=== PATIENT | female | born 1935 | race Caucasian/White ===

== ENCOUNTER 2017-10-10 14:51 | Inpatient (IN) | payer MEDICARE ==
[~2017-10-10] VITALS: Ht 165.1 cm; Wt 59.9 kg
[2017-10-10 16:01] VITALS: BP 99/43
[2017-10-10] MEDS ORDERED: PRED5TAB PO (16:09)
[2017-10-10] MEDS ORDERED: HYDR25TA PO (16:09)
[2017-10-10] MEDS ORDERED: PANT40TA25 PO (16:09)
[2017-10-10] MEDS ORDERED: WARF-67 PO (16:09)
[2017-10-10] MEDS ORDERED: AMLO5TAB2 PO (16:09)
[2017-10-10] MEDS ORDERED: FLUT16H NASAL (16:09)
[2017-10-10] MEDS ORDERED: FLUT1AER IH (16:09)
[2017-10-10] MEDS ORDERED: ALPR0.25 PO (16:09)
[2017-10-10] MEDS ORDERED: GABA-531 PO (16:09)
[2017-10-10] MEDS ORDERED: METH25VI11 IM (16:09)
[2017-10-10] MEDS ORDERED: LOSA50TA37 PO (16:09)
[2017-10-10] MEDS ORDERED: CILO50TA PO (16:09)
[2017-10-10] MEDS ORDERED: HYDR200T4 PO (16:09)
[2017-10-10] MEDS ORDERED: WARF3TAB59 PO (16:09)
[2017-10-10] MEDS ORDERED: BACL10TA PO (16:09)
[2017-10-10] MEDS ORDERED: FURO20TA4 PO (16:09)
[2017-10-10] MEDS ORDERED: FOLI1TAB15 PO (16:09)
[2017-10-10] MEDS ORDERED: NITROGLYCERIN 0.4 MG SL TAB SL PRN (16:45)
[2017-10-10 17:13] LABS: MEAN CORPUSCULAR HEMOGLOBIN 32.7 pg (27.0-33.0); MEAN CORPUSCULAR HGB CONC 34.8 g/dL (32.0-36.0); MEAN CORPUSCULAR VOLUME 94.1 fL (79-99); PLATELET COUNT (AUTO) 245 K/uL (130-400); RED BLOOD CELL COUNT(AUTO) 3.29 MIL/uL (4.00-5.50); RED CELL DISTRIBUTION WIDTH 17.4 % (11.0-15.5)
[2017-10-10 17:25] LABS: CREATININE 1.4 mg/dL (0.5-1.5); POTASSIUM 3.4 mmol/L (3.5-5.1)
[2017-10-10 17:26] LABS: INR 1.44 (0.85-1.15)
[2017-10-10 17:30] LABS: BILIRUBIN,TOTAL 0.3 mg/dL (0.2-1.0); TOTAL PROTEIN, SERUM 6.5 g/dL (6.0-8.3)
[2017-10-10 19:29] VITALS: BP 107/46
[2017-10-10 23:35] VITALS: BP 108/48
[2017-10-11] VITALS (13 sets, daily range): BP systolic 102–127; BP diastolic 36–63
[2017-10-11] MEDS: ACETAMINOPHEN 325 MG TAB PO PRN ×2 (00:31→10:01)
[2017-10-11] MEDS ORDERED: LACTULOSE 20 GM/30 ML UDCUP PO PRN (01:15)
[2017-10-11] MEDS ORDERED: POTASSIUM CHLORIDE 20MEQ/100ML 100 ML IV PRN (01:15)
[2017-10-11] MEDS ORDERED: LIDOCAINE HCL-MPF 1% 2ML VIAL IVP PRN (01:15)
[2017-10-11] MEDS ORDERED: HYDRALAZINE HCL 20 MG/ML VIAL IV PRN (01:15)
[2017-10-11] MEDS ORDERED: POTASSIUM CHLORIDE 10% ELIXIR 20 MEQ/15 ML UDCUP PO PRN (01:15)
[2017-10-11] MEDS ORDERED: POTASSIUM CHLORIDE 20 MEQ ERTAB PO PRN (01:15)
[2017-10-11] MEDS ORDERED: SODIUM CHLORIDE 0.9% 1000ML 1,000 ML IV ONE (02:31)
[2017-10-11 03:20] LABS: HEMATOCRIT 29.6 % (36-48); MEAN CORPUSCULAR HEMOGLOBIN 31.7 pg (27.0-33.0); MEAN CORPUSCULAR HGB CONC 33.7 g/dL (32.0-36.0); MEAN CORPUSCULAR VOLUME 94.1 fL (79-99); PLATELET COUNT (AUTO) 207 K/uL (130-400); RED BLOOD CELL COUNT(AUTO) 3.15 MIL/uL (4.00-5.50); RED CELL DISTRIBUTION WIDTH 17.1 % (11.0-15.5); WHITE BLOOD COUNT (AUTO) 6.2 K/uL (4.8-10.8)
[2017-10-11 03:26] LABS: INR 1.57 (0.85-1.15); PROTHROMBIN TIME 16.3 SEC (9.6-11.6)
[2017-10-11 03:27] LABS: CREATININE 1.1 mg/dL (0.5-1.5)
[2017-10-11] MEDS: SODIUM CHLORIDE 0.9% 1000ML 1,000 ML IV SCH ×3 (08:24→23:45)
[2017-10-11] MEDS ORDERED: FLUTICASONE/VILANTEROL 1 EACH AER.POW.BA IH SCH (09:00)
[2017-10-11] MEDS: FLUTICASONE PROPIONATE 50MCG/SPRAY 16 GM BOTTLE EN SCH (09:00)
[2017-10-11] MEDS: BACLOFEN 10 MG TABLET PO SCH ×2 (09:00→21:00)
[2017-10-11] MEDS: HYDROXYCHLOROQUINE SULFATE 200 MG TAB PO SCH ×2 (09:00→21:00)
[2017-10-11] MEDS: GABAPENTIN 300 MG CAPSULE PO SCH ×2 (09:00→21:00)
[2017-10-11] MEDS ORDERED: PANTOPRAZOLE 40 MG/VIAL IVP SCH (09:00)
[2017-10-11] MEDS: LOSARTAN 50 MG TABLET PO SCH ×2 (10:00→21:00)
[2017-10-11] MEDS: PANTOPRAZOLE SODIUM 40 MG TABLET.DR PO SCH (10:00)
[2017-10-11] MEDS: AMLODIPINE BESYLATE 5 MG TAB PO SCH ×2 (10:00→21:00)
[2017-10-11] MEDS ORDERED: SODIUM BICARB 50MEQ 50ML VIAL ONE (14:50)
[2017-10-11] MEDS ORDERED: LIDOCAINE HCL 2% 20ML ONE (14:50)
[2017-10-11] MEDS ORDERED: ISOVUE-300 100 ML VIAL IV ONE (14:50)
[2017-10-11] MEDS ORDERED: HEPARIN SODIUM 1000UNIT/ML 10ML VIAL ONE (14:50)
[2017-10-11] MEDS ORDERED: NITROGLYCERIN 5 MG/ML 10 ML VIAL IV ONE (14:50)
[2017-10-11] MEDS ORDERED: FENTANYL CITRATE PF 50 MCG/1 ML 5ML AMP IV ONE (17:54)
[2017-10-11] MEDS ORDERED: PROPOFOL 10 MG/ML 20ML VIAL IV ONE ×2 (17:56→20:50)
[2017-10-11] MEDS ORDERED: BACITRACIN 50,000 UNIT VIAL ONE (18:25)
[2017-10-11] MEDS ORDERED: OCTYL 2-CYANOACRYLATE 1 EACH TP ONE (18:25)
[2017-10-11] MEDS ORDERED: CLINDAMYCIN 900 MG/D5% WATER 50 ML IV ONE (18:32)
[2017-10-11] MEDS ORDERED: CLINDAMYCIN 900 MG/D5% WATER 50 ML IV SCH (18:45)
[2017-10-11] MEDS: CLINDAMYCIN 600 MG/D5% WATER 50 ML IV SCH (19:00)
[2017-10-11] MEDS ORDERED: ACETAMINOPHEN 325 MG TAB PO PRN (19:00)
[2017-10-11] MEDS ORDERED: HYDROMORPHONE HCL 0.5 MG/0.5 ML ML IVP PRN (19:00)
[2017-10-11] MEDS ORDERED: MAGNESIUM HYDROXIDE 30 ML/UDCUP PO PRN (19:00)
[2017-10-11] MEDS ORDERED: DEXTROSE 5 %-0.45 % NACL 1,000 ML IV SCH (19:00)
[2017-10-11] MEDS ORDERED: ALBUMIN (HUMAN) 5% 250 ML IV SCH (20:45)
[2017-10-11] MEDS ORDERED: ONDANSETRON HCL MDV 20ML 2 MG/ML VIAL ONE (20:49)
[2017-10-11] MEDS ORDERED: SCOPOLAMINE HYDROBROMIDE 1 EACH ADH..PATCH TD ONE (20:50)
[2017-10-11] MEDS ORDERED: PREDNISONE 5 MG TABLET PO SCH (21:00)
[2017-10-11] MEDS: ALPRAZOLAM 0.25 MG TABLET PO SCH (21:00)
[2017-10-11] MEDS: FOLIC ACID 1 MG TABLET PO SCH (21:00)
[2017-10-11 21:21] LABS: INR 1.46 (0.85-1.15); PARTIAL THROMBOPLASTIN TIME 30.6 SEC (26.3-35.5); PROTHROMBIN TIME 15.2 SEC (9.6-11.6)
[2017-10-11] MEDS ORDERED: ONDANSETRON HCL MDV 20ML 2 MG/ML VIAL IVP PRN (22:00)
[2017-10-11] MEDS ORDERED: PROMETHAZINE HCL 25 MG/ML 1ML AMPULE IM PRN (22:00)
[2017-10-11] MEDS ORDERED: ATROPINE SULFATE 0.1 MG/ML 10 ML SYG IVP ONE (23:51)
[2017-10-12] VITALS (35 sets, daily range): BP systolic 67–143; BP diastolic 23–71
[2017-10-12] MEDS: CLINDAMYCIN 600 MG/D5% WATER 50 ML IV SCH ×2 (03:11→10:36)
[2017-10-12 04:16] LABS: HEMATOCRIT 28.6 % (36-48); MEAN CORPUSCULAR HEMOGLOBIN 30.6 pg (27.0-33.0); MEAN CORPUSCULAR HGB CONC 32.3 g/dL (32.0-36.0); MEAN CORPUSCULAR VOLUME 94.6 fL (79-99); PLATELET COUNT (AUTO) 155 K/uL (130-400); RED BLOOD CELL COUNT(AUTO) 3.02 MIL/uL (4.00-5.50); RED CELL DISTRIBUTION WIDTH 17.1 % (11.0-15.5); WHITE BLOOD COUNT (AUTO) 7.3 K/uL (4.8-10.8)
[2017-10-12 04:38] LABS: BILIRUBIN,TOTAL 0.6 mg/dL (0.2-1.0); CREATININE 0.6 mg/dL (0.5-1.5); POTASSIUM 3.3 mmol/L (3.5-5.1); TOTAL PROTEIN, SERUM 5.7 g/dL (6.0-8.3)
[2017-10-12] MEDS: PANTOPRAZOLE SODIUM 40 MG TABLET.DR PO SCH (06:49)
[2017-10-12] MEDS: BACLOFEN 10 MG TABLET PO SCH ×2 (08:35→20:35)
[2017-10-12] MEDS: HYDROXYCHLOROQUINE SULFATE 200 MG TAB PO SCH ×2 (08:35→21:21)
[2017-10-12] MEDS: GABAPENTIN 300 MG CAPSULE PO SCH ×3 (09:36→21:21)
[2017-10-12] MEDS: AMLODIPINE BESYLATE 5 MG TAB PO SCH ×2 (09:36→19:29)
[2017-10-12] MEDS: LOSARTAN 50 MG TABLET PO SCH ×2 (09:36→19:29)
[2017-10-12] MEDS: RIVAROXABAN 20 MG TABLET PO SCH (09:36)
[2017-10-12] MEDS: FLUTICASONE PROPIONATE 50MCG/SPRAY 16 GM BOTTLE EN SCH (09:51)
[2017-10-12] MEDS: POTASSIUM CHLORIDE 20 MEQ in DEXTROSE 5 %-0.45 % NACL 1,000 ML IV SCH (12:27)
[2017-10-12] MEDS: ALPRAZOLAM 0.25 MG TABLET PO SCH (21:00)
[2017-10-12] MEDS: PREDNISONE 5 MG TABLET PO SCH (21:20)
[2017-10-12] MEDS: PREDNISONE 1 MG TAB PO SCH (21:20)
[2017-10-12] MEDS: FOLIC ACID 1 MG TABLET PO SCH (21:21)
[2017-10-13] VITALS (10 sets, daily range): BP systolic 94–108; BP diastolic 40–56
[2017-10-13 04:29] LABS: HEMATOCRIT 25.4 % (36-48); MEAN CORPUSCULAR HEMOGLOBIN 31.6 pg (27.0-33.0); MEAN CORPUSCULAR HGB CONC 33.9 g/dL (32.0-36.0); MEAN CORPUSCULAR VOLUME 93.3 fL (79-99); PLATELET COUNT (AUTO) 163 K/uL (130-400); RED BLOOD CELL COUNT(AUTO) 2.73 MIL/uL (4.00-5.50); RED CELL DISTRIBUTION WIDTH 16.8 % (11.0-15.5); WHITE BLOOD COUNT (AUTO) 7.8 K/uL (4.8-10.8)
[2017-10-13 04:42] LABS: CREATININE 0.7 mg/dL (0.5-1.5); POTASSIUM 3.7 mmol/L (3.5-5.1)
[2017-10-13] MEDS: FLUTICASONE PROPIONATE 50MCG/SPRAY 16 GM BOTTLE EN SCH (08:54)
[2017-10-13] MEDS: POTASSIUM CHLORIDE 20 MEQ in DEXTROSE 5 %-0.45 % NACL 1,000 ML IV SCH (08:54)
[2017-10-13] MEDS: RIVAROXABAN 20 MG TABLET PO SCH (08:55)
[2017-10-13] MEDS: HYDROXYCHLOROQUINE SULFATE 200 MG TAB PO SCH ×2 (08:55→21:36)
[2017-10-13] MEDS: GABAPENTIN 300 MG CAPSULE PO SCH ×3 (08:56→21:36)
[2017-10-13] MEDS: BACLOFEN 10 MG TABLET PO SCH ×2 (08:56→21:37)
[2017-10-13] MEDS: LOSARTAN 50 MG TABLET PO SCH ×2 (08:56→21:36)
[2017-10-13] MEDS: PANTOPRAZOLE SODIUM 40 MG TABLET.DR PO SCH (08:57)
[2017-10-13] MEDS ORDERED: FUROSEMIDE 20 MG TABLET PO SCH (13:00)
[2017-10-13] MEDS ORDERED: HYDROCHLOROTHIAZIDE 25 MG TABLET PO SCH (21:00)
[2017-10-13] MEDS: ALPRAZOLAM 0.25 MG TABLET PO SCH ×2 (21:00→21:37)
[2017-10-13] MEDS: PREDNISONE 5 MG TABLET PO SCH (21:36)
[2017-10-13] MEDS: PREDNISONE 1 MG TAB PO SCH (21:36)
[2017-10-13] MEDS: FOLIC ACID 1 MG TABLET PO SCH (21:37)
[2017-10-14 03:21] VITALS: BP 88/44
[2017-10-14 04:33] LABS: HEMATOCRIT 25.7 % (36-48); MEAN CORPUSCULAR HEMOGLOBIN 31.5 pg (27.0-33.0); MEAN CORPUSCULAR HGB CONC 33.3 g/dL (32.0-36.0); MEAN CORPUSCULAR VOLUME 94.7 fL (79-99); PLATELET COUNT (AUTO) 170 K/uL (130-400); RED BLOOD CELL COUNT(AUTO) 2.71 MIL/uL (4.00-5.50); RED CELL DISTRIBUTION WIDTH 17.4 % (11.0-15.5); WHITE BLOOD COUNT (AUTO) 9.2 K/uL (4.8-10.8)
[2017-10-14 04:40] LABS: CREATININE 0.9 mg/dL (0.5-1.5); POTASSIUM 4.3 mmol/L (3.5-5.1)
[2017-10-14] MEDS: PANTOPRAZOLE SODIUM 40 MG TABLET.DR PO SCH (06:22)
[2017-10-14 07:45] VITALS: BP 106/50
[2017-10-14] MEDS ORDERED: APIX2.5T PO (08:00)
[2017-10-14] MEDS ORDERED: APIXABAN 2.5 MG TABLET PO SCH (09:00)
[2017-10-14] MEDS ORDERED: FUROSEMIDE 20 MG TABLET PO SCH (09:00)
[2017-10-14] MEDS: BACLOFEN 10 MG TABLET PO SCH (09:55)
[2017-10-14] MEDS: LOSARTAN 50 MG TABLET PO SCH (09:55)
[2017-10-14] MEDS: HYDROXYCHLOROQUINE SULFATE 200 MG TAB PO SCH (09:56)
[2017-10-14] MEDS: FLUTICASONE PROPIONATE 50MCG/SPRAY 16 GM BOTTLE EN SCH (09:56)
[2017-10-14] MEDS: GABAPENTIN 300 MG CAPSULE PO SCH (09:56)
[2017-10-14 10:58] VITALS: BP 120/55
[2017-10-14] MEDS ORDERED: FERROUS SULFATE 325 MG TABLET.DR PO SCH (17:00)
== END 2017-10-14 15:55 | disposition home health service (06) | DRG 252 ==
LOC: EDH 14:51 → 2AH 14:52 → 2CH 10-11 20:27 → 2DH 10-13 15:06
PROVIDERS: ADMIT Internal Medicine; ATTEND Internal Medicine
PROC: 047K3ZZ Dilation of Right Femoral Artery, Percutaneous Approach (ICD-10-PCS; 2017-10-11)
PROC: 04CK0ZZ Extirpation of Matter from Right Femoral Artery, Open Approach (ICD-10-PCS; 2017-10-11)
PROC: 04UK0KZ Supplement Right Femoral Artery with Nonautologous Tissue Substitute, Open Approach (ICD-10-PCS; 2017-10-11)
PROC: B4101ZZ Fluoroscopy of Abdominal Aorta using Low Osmolar Contrast (ICD-10-PCS; 2017-10-11)
PROC: B41C1ZZ Fluoroscopy of Pelvic Arteries using Low Osmolar Contrast (ICD-10-PCS; 2017-10-11)
PROC: 04HH33Z Insertion of Infusion Device into Right External Iliac Artery, Percutaneous Approach (ICD-10-PCS; 2017-10-11)
PROC: 047C3DZ Dilation of Right Common Iliac Artery with Intraluminal Device, Percutaneous Approach (ICD-10-PCS; principal; 2017-10-11 18:34)
DX: I99.8 Other disorder of circulatory system (principal); I77.77 Dissection of artery of lower extremity; G62.9 Polyneuropathy, unspecified; I70.201 Unspecified atherosclerosis of native arteries of extremities, right leg; D64.9 Anemia, unspecified; I48.0 Paroxysmal atrial fibrillation; I10 Essential (primary) hypertension; I70.8 Atherosclerosis of other arteries; I71.4 Abdominal aortic aneurysm, without rupture; J44.9 Chronic obstructive pulmonary disease, unspecified; K21.9 Gastro-esophageal reflux disease without esophagitis; K29.70 Gastritis, unspecified, without bleeding; K31.89 Other diseases of stomach and duodenum; M06.9 Rheumatoid arthritis, unspecified; Z79.01 Long term (current) use of anticoagulants; Z86.73 Personal history of transient ischemic attack (TIA), and cerebral infarction without residual deficits; Z86.79 Personal history of other diseases of the circulatory system; Z87.891 Personal history of nicotine dependence; Z88.6 Allergy status to analgesic agent; Z99.3 Dependence on wheelchair; Z88.8 Allergy status to other drugs, medicaments and biological substances
CPT/HCPCS: 36415; 37221; 37224; 71045; 75625; 75716; 80048; 80053; 85027; 85347; 85610; 85730; 86850; 86900; 86901; 86922; 88304; 88311; 93306; 93880; 97039; A4344; C1725; C1768; C1769; C1887; C1894; C9113; J0461; J1170; J1644; J2550; J2704; J3010; J3480; J3490; J7030; J7042; J7512; P9045; Q9967